=== PATIENT | female | born 1980 | race African-American/Black ===

== ENCOUNTER 2017-09-01 13:28 | Emergency (ER) | payer OTHER ==
[~2017-09-01] VITALS: Ht 175.3 cm; Wt 61.2 kg
--- NOTE | ~2017-09-01 | EKG ---
[place] [address] [facility] [place] [address] ELECTROCARDIOGRAM REPORT Name: LOREE RONDON Room #: DEP [facility]#: [id number] Admission: 09/01/17 Attend Phys: Discharge: 09/01/17 Date of : 76 Report #: [id number] THIS REPORT FOR: //name// [facility] ED Test Date: 2017-09-01 Test Time: 13:42:16 Pat Name: LOREE RONDON Department: Room: Gender: F [employer]: AT : 1980 Requested By: Buddy Nash Order Number: [id number] MD: Niles Saldaña Measurements Intervals Gordon Rate: 69 P: 42 SD: 150 QRS: 47 QRSD: 88 T: 8 QT: 397 QTc: 426 Interpretive Statements Sinus rhythm Consider left ventricular hypertrophy Baseline wander in lead(s) III Compared to ECG 12/18/2003 12:29:55 No significant changes Electronically Signed On 09-04-2017 9:06:53 CDT by Niles Saldaña [email or web address] <ELECTRONICALLY SIGNED> By: Niles Saldaña MD, [facility] 09/04/17 [phone] Niles Saldaña MD, [facility] /EPI
[~2017-09-01 13:28] MED LIST: CIPROFLOXACIN500 M1 PO; FERROUS SULFAT325 M1 PO; FLINTSTONES M200 MCG PO; IBUPROFEN 600600 M1 PO; LOESTRIN1 EAC1 PO; LORTAB 5 MG/5001 TA1 PO; PHENERGAN 25 MG25 M1 PO
[2017-09-01 14:40] LABS: ABSOLUTE NEUTROPHILS 2.6 thou/uL (1.4-8.2); BASOPHILS 1.5 % (0.0-2.0); EOSINOPHILS 0.9 % (0.0-3.0); HEMATOCRIT 38.4 % (37.0-47.0); HEMOGLOBIN 13.3 gm/dL (12.0-15.0); LYMPHOCYTES 30.9 % (24.0-44.0); MCH 30.7 pg (26.0-34.0); MCHC 34.7 g/dL (28.0-37.0); MCV 88.6 fL (80.0-100.0); MONOCYTES 6.5 % (1.0-8.0); PLATELET COUNT 198 thou/uL (150-400); POLYS 60.2 % (36.0-66.0); RBC 4.33 mil/uL (4.20-5.00); RDW 12.5 % (10.5-14.5); WBC 4.3 thou/uL (4.0-11.0)
[2017-09-01 14:51] LABS: ANION GAP 7 mmol/L (7-16); BUN 11 mg/dL (7-18); CALCIUM 9.4 mg/dL (8.5-10.1); CHLORIDE 104 mmol/L (98-107); CO2 28 mmol/L (21-32); CREATININE 0.8 mg/dL (0.6-1.0); GLUCOSE 96 mg/dL (74-106); SODIUM 139 mmol/L (136-145)
[2017-09-01 14:58] LABS: POTASSIUM 2.8 mmol/L (3.5-5.1)
[2017-09-01 15:00] LABS: TROPONIN-I <0.06 ng/mL (<0.06)
[2017-09-01 18:25] LABS: CALCIUM 8.4 mg/dL (8.5-10.1); CREATININE 0.8 mg/dL (0.6-1.0)
[2017-09-01] MEDS ORDERED: K-TAB ER20 MEQ PO (18:27)
[2017-09-01 19:08] VITALS: BP 152/81
== END 2017-09-01 19:09 | disposition home or self-care (01) ==
LOC: ER 13:28
PROVIDERS: Physician Assistant
DX: E87.6 Hypokalemia (principal); R25.2 Cramp and spasm; I10 Essential (primary) hypertension; R07.89 Other chest pain